=== PATIENT | male | born 1970 | race Caucasian/White ===

== ENCOUNTER 2016-11-06 06:47 | Emergency (ER) | payer SELFPAY ==
[2016-11-06 06:57] VITALS: BP 127/79
[2016-11-06] MEDS ORDERED: PENICILLIN V POTASSIUM 500 MG TABLET PO ONE (07:18)
[2016-11-06] MEDS ORDERED: BUPIVACAINE HCL 0.5%-EPI 1:200000 INJ/PF 30 ML VIAL INJ ONE (07:19)
--- NOTE | 2016-11-06 07:39 | ER Document Report ---
ED General - General Chief Complaint: Toothache Stated Complaint: TOOTHACHE Time Seen by Provider: 11/06/16 07:14 TRAVEL OUTSIDE OF THE [place] IN LAST 30 DAYS: No - HPI Patient complains to provider of: Tooth pain Notes: Patient coming in for evaluation of tooth pain. Patient has a dental injury some time ago and his #7 and 8 teeth patient states he has not followed up with a dentist states most time he can take Tylenol Motrin for his pain however the last 3 days pain has increased patient states he has had some purulent material draining from the gumline of these teeth. Otherwise patient denies any difficulty in swallowing facial swelling temperature fever nausea vomiting diarrhea. Patient states that he is looking for a dentist at this time - Related Data Allergies/Adverse Reactions: No Known Allergies Allergy (Unverified 11/06/16 06:53) Past Medical History - Social History Smoking Status: Unknown if Ever Smoked Family History: Reviewed & Not Pertinent Patient has suicidal ideation: No Patient has homicidal ideation: No Renal/ Medical History: Denies: Hx Peritoneal Dialysis Review of Systems - Review of Systems Constitutional: No symptoms reported EENT: Other - Dental pain Cardiovascular: No symptoms reported Respiratory: No symptoms reported Gastrointestinal: No symptoms reported Genitourinary: No symptoms reported Male Genitourinary: No symptoms reported Musculoskeletal: No symptoms reported Skin: No symptoms reported Hematologic/Lymphatic: No symptoms reported Neurological/Psychological: No symptoms reported Physical Exam - Vital signs Vitals: Temp Pulse Resp BP Pulse Ox 97.9 F 66 18 127/79 H 98 11/06/16 06:54 11/06/16 06:54 11/06/16 06:54 11/06/16 06:54 11/06/16 06:54 Interpretation: Normal - General General appearance: Appears well, Alert - HEENT Head: Normocephalic, Atraumatic Eyes: Normal Pupils: PERRL Notes: Patient with poor dentition with multiple dental caries patient has obvious fracture and decay of tooth 7 and 8 with gingival cellulitis. There is no drainable abscess seen - Respiratory Respiratory status: No respiratory distress Chest status: Nontender Breath sounds: Normal Chest palpation: Normal - Cardiovascular Rhythm: Regular Heart sounds: Normal auscultation Murmur: No - Abdominal Inspection: Normal Distension: No distension Bowel sounds: Normal Tenderness: Nontender Organomegaly: No organomegaly - Back Back: Normal, Nontender - Extremities General upper extremity: Normal inspection, Nontender, Normal color, Normal ROM , Normal temperature General lower extremity: Normal inspection, Nontender, Normal color, Normal ROM , Normal temperature, Normal weight bearing. No: Lidia's sign - Neurological Neuro grossly intact: Yes Cognition: Normal Orientation: AAOx4 [place] Coma Scale Eye Opening: Spontaneous [place] Coma Scale Verbal: Oriented Hugo Coma Scale Motor: Obeys Commands Hugo Coma Scale Total: 15 Speech: Normal Motor strength normal: LUE, RUE, LLE, RLE Sensory: Normal - Psychological Associated symptoms: Normal affect, Normal mood - Skin Skin Temperature: Warm Skin Moisture: Dry Skin Color: Normal Course - Re-evaluation Re-evalutation: 11/06/16 07:59 Patient with more likely a cellulitic process of the gingiva at tooth 7 and 8 patient underwent a block with good analgesia. Patient was given Pen-Vee K and Motrin and a prescription for Ultram dental referral was also given to the patient patient was encouraged to follow-up with a dentist for his dental problem and explained to the patient that we have very limited care dental issues here in the ER. - Vital Signs Vital signs: Temp Pulse Resp BP Pulse Ox 97.9 F 66 18 127/79 H 98 11/06/16 06:54 11/06/16 06:54 11/06/16 06:54 11/06/16 06:54 11/06/16 06:54 Procedures - Additional Procedures dental block Notes: 11/06/16 08:01 Inferior alveolar dental block was performed using 0.5% Sensorcaine with epi. 25-gauge needle was inserted and the posterior gumline with no aspiration of blood instilled 2.5 cc of Marcaine good analgesia performed patient tolerated well Discharge - Discharge Clinical Impression: Toothache, Dental abscess Condition: Good Disposition: HOME, SELF-CARE Instructions: [facility], Dentist, Dental Infection or Abscess ( [facility]), Penicillin V K ([facility]), Toothache ([facility]) Additional Instructions: Please follow-up with the dental clinics provided. Take medication as prescribed he will need to see a dentist to have your tooth removed to treat your symptoms. Prescriptions: Ibuprofen [Motrin 600 mg Tablet] 600 mg PO Q8HP PRN #90 tablet PRN Reason: Penicillin V Potassium [Penicillin Vk 500 mg Tablet] 500 mg PO QID 10 Days #10 tablet Tramadol HCl [Ultram 50 mg Tablet] 50 mg PO ASDIR PRN #20 tablet PRN Reason:
== END 2016-11-06 07:53 | disposition home or self-care (01) ==
LOC: ER 06:47
PROC: 3E0T3BZ Introduction of Anesthetic Agent into Peripheral Nerves and Plexi, Percutaneous Approach (ICD-10-PCS; principal; 2016-11-06)
DX: K04.7 Periapical abscess without sinus (principal)
CPT/HCPCS: 99282; 64400; J3490

== ENCOUNTER 2017-08-25 00:04 | Emergency (ER) | payer OTHER ==
[2017-08-25 01:07] VITALS: BP 122/80
[2017-08-25] MEDS ORDERED: HYDROCODONE/ACETAMINOPHEN 5-325 MG (6 TAB/ER DISP) PO PRN (01:52)
[2017-08-25] MEDS ORDERED: CYCLOBENZAPRINE HCL 10 MG TABLET PO ONE (01:52)
[2017-08-25] MEDS ORDERED: IBUPROFEN 600 MG TABLET PO ONE (01:52)
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
== END 2017-08-25 02:03 | disposition home or self-care (01) ==
LOC: ER 00:04
DX: M54.2 Cervicalgia (principal); M54.5 Low back pain; V49.50XA Passenger injured in collision with unspecified motor vehicles in traffic accident, initial encounter
CPT/HCPCS: 99283

== ENCOUNTER 2017-08-28 11:26 | Emergency (ER) | payer OTHER ==
[2017-08-28 11:31] VITALS: BP 119/87
[2017-08-28] MEDS ORDERED: HYDROCODONE/ACETAMINOPHEN 5-325 MG (6 TAB/ER DISP) PO PRN (11:55)
[2017-08-28] MEDS ORDERED: DEXAMETHASONE SOD PHOS INJ 10 MG/1 ML VIAL IM ONE (11:55)
[2017-08-28] MEDS ORDERED: KETOROLAC TROMETHAMINE 60 MG/2 ML SDV IM ONE (11:55)
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
== END 2017-08-28 12:29 | disposition home or self-care (01) ==
LOC: ER 11:26
DX: M54.2 Cervicalgia (principal); M54.6 Pain in thoracic spine; M54.5 Low back pain; F17.210 Nicotine dependence, cigarettes, uncomplicated
CPT/HCPCS: 99406; 99283; 96372; J1885; J1100